=== PATIENT | female | born 1965 | race Caucasian/White ===

== ENCOUNTER 2017-09-19 22:20 | Emergency (ER) | payer BC ==
[~2017-09-19] VITALS: Ht 175.3 cm; Wt 83.6 kg
[~2017-09-19 22:20] MED LIST: ACET-2119 PO; IBUP-1984 PO
[2017-09-19 22:28] VITALS: BP 121/72
[2017-09-19] MEDS ORDERED: ibuprofen tablet 400 MG TABLET PO ONE (22:45)
== END 2017-09-19 23:44 | disposition home or self-care (01) ==
LOC: ER 22:21
DX: S92.511A Displaced fracture of proximal phalanx of right lesser toe(s), initial encounter for closed fracture (principal); Z88.6 Allergy status to analgesic agent; W22.8XXA Striking against or struck by other objects, initial encounter; Y93.89 Activity, other specified; Y92.89 Other specified places as the place of occurrence of the external cause; Y99.9 Unspecified external cause status
CPT/HCPCS: 73660; 99284

== ENCOUNTER 2023-09-22 08:44 | Outpatient (CLI) | payer MEDICAID ==
[2023-09-22] MEDS ORDERED: iohexol 350MG/ML 100ml bottle IV ONE (09:00)
== END 2023-09-22 23:59 | disposition home or self-care (01) ==
LOC: RAD 08:44
PROVIDERS: ATTEND Student in an Organized Health Care Education/Training Program
DX: K76.0 Fatty (change of) liver, not elsewhere classified (principal); I70.0 Atherosclerosis of aorta; N30.21 Other chronic cystitis with hematuria; R31.9 Hematuria, unspecified; R19.5 Other fecal abnormalities; M48.07 Spinal stenosis, lumbosacral region; Z90.710 Acquired absence of both cervix and uterus
CPT/HCPCS: 74178; J3490; Q9967